=== PATIENT | male | born 1995 | race African-American/Black ===

== ENCOUNTER 2024-11-05 14:47 | Emergency (ER) | payer MEDICAID, SELFPAY ==
[2024-11-05 14:54] VITALS: BP 112/73; PULSE 60; RESP 18; TEMP 37.4; O2SAT 98; BMI 22.6
--- NOTE | 2024-11-05 15:00 | ED_ITS ---
HPI - General Adult General Chief complaint: Extremity Pain/Injury, Lower Stated complaint: Fell from semi truck, hit knee Time Seen by Provider: 11/05/24 14:58 History of Present Illness HPI narrative: Patient presents to the emergency department complaining of right knee pain after a fall. Patient states he slipped from his truck and fell to his side and hurt his knee. Patient is able to walk on it although uncomfortable. Patient has increased pain when trying to bend the knee. Incident took place at 1130 today. 28-year-old man presenting to the emergency department with right knee pain after a fall from his semi. It sounds as though was either going up or coming d own the steps of a semi when slipped striking the outer aspect his knee on one of the steps. Is having a great deal of pain flexing his knee. Is able to walk but I understand him to need to be on his toes somewhat. Related Data Home Medications ?Medication ?Instructions ?Recorded ?Confirmed No Known Home Medications 11/05/24 11/05/24 Allergies Allergy/AdvReac Type Severity Reaction Status Date / Time No Known Drug Allergies Allergy Verified 11/05/24 14:59 Review of Systems Status of ROS: Reports: 6 or more systems reviewed and unremarkable except as noted in History and below PFSH PFS Social History Smoking Status: Never smoker Second hand tobacco smoke exposure: No How often do you have a drink containing alcohol: never How often do you have six or more drinks on one occasion: Never AUDIT-C Alcohol total score: 0 Non-prescribed substance use: denies use service: No Exam Narrative: Exam Narrative: Pleasant. NAD. Wearing work boots and long pants. Pulling pants up able to examine the right knee in question. There is tenderness just above in about the fibular head on the right knee. I do not appreciate an effusion and erythema or any abrasion. Flexion of the knee is possible but causes marked increase in pain. There is no laxity to varus or valgus stressors. Leonid's was not really possible due to discomfort. Parviz's appears negative. Const: Vital Signs, click to edit/add: Vital Signs - 24 hr 11/05/24 14:54 Temperature 99.3 F Pulse Rate [Right Pulse Oximeter] 60 Respiratory Rate 18 Blood Pressure [Ri ght Upper Arm] 112/73 Pulse Oximetry 98 Oxygen Delivery Me thod Room Air Documenting provider has reviewed patient's vital signs: yes Course Vital Signs Vital signs: Initial Vital Signs Temperature 99.3 F 11/05/24 14:54 Temperature Source Temporal Artery Scan 11/05/24 14:54 Pulse Rate 60 11/05/24 14:54 Pulse Rhythm Regular 11/05/24 14:54 Pulse Strength 3+ Normal 11/05/24 14:54 Respiratory Rate 18 11/05/24 14:54 Blood Pressure 112/73 11/05/24 14:54 Blood Pressure Mean 86 11/05/24 14:54 Blood Pressure Position Sitting 11/05/24 14:54 Pulse Oximetry 98 11/05/24 14:54 Oxygen Delivery Method Room Air 11/05/24 14:54 Vital Signs Temperature 99.3 F 11/05/24 14:54 Pulse Rate 60 11/05/24 14:54 Respiratory Rate 18 11/05/24 14:54 Blood Pressure 112/73 11/05/24 14:54 Pulse Oximetry 98 11/05/24 14:54 Oxygen Delivery Method Room Air 11/05/24 14:54 Temperature 99.3 F 11/05/24 14:54 Pulse Rate 60 11/05/24 14:54 Respiratory Rate 18 11/05/24 14:54 Blood Pressure 112/73 11/05/24 14:54 Pulse Oximetry 98 11/05/24 14:54 Oxygen Delivery Method Room Air 11/05/24 14:54 Medications Administered Medications: Discontinued Medications Generic Name Dose Route Start Last Admin Trade Name Freq PRN Reason Stop Dose Admin Ibuprofen 600 mg 11/05/24 15:07 11/05/24 15:12 Ibuprofen 200 Mg Tablet PO 11/05/24 15:08 600 mg ONCE ONE Administration Medical Decision Making MDM Narrative Medical decision making narrative: I suspect this is either contusion or possibly a sprain of the fibular head of the knee. I doubt internal knee derangement otherwise. No effusion is noted. I doubt rib fracture but possible there might be a fracture of the fibular head. Does not appear to have sustained injury lower in the leg. With degree of disc omfort it is reasonable to x-ray the knee. Also given ibuprofen and I placed an ice pack held on with Jimmy wrap which did feel better he says. Does not have radicular symptoms to suggest fibular nerve injury. X-ray three-view of the right knee independently reviewed by me looks to be without evidence of injury. Will be placed in a knee immobilizer. See patient discharge plan for further discussion It looks as though what you have done is bruised a very sensitive area of the knee. This can be very painful. I do not have any specific restrictions for you other than to acknowledge that bending your knee, walking over the next week might be rather painful. You can wear this knee immobilizer for comfort over this next week. Can take up to 800 mg of ibuprofen or up to 1000 mg of acetaminophen per dose. Alternative to the ibuprofen might be up to 500 mg naproxen 2 times daily. I would ice your knee using this Jimmy wrap and an ice bag 2 to 3 times a day over the next few days. I like the Rocha brand ice bags. You can buy them at [facility]'s last I saw. Fill with ice and water. Follow-up for re-evaluation if you are not improved in 10 days. Discharge Plan Discharge Clinical Impression: Acute knee pain, Contusion Patient Disposition: Home, Self-Care Condition: Stable Additional Instructions: It looks as though what you have done is bruised a very sensitive area of the knee. This can be very painful. I do not have any specific restrictions for yo u other than to acknowledge that bending your knee, walking over the next week might be rather painful. You can wear this knee immobilizer for comfort over this next week. Can take up to 800 mg of ibuprofen or up to 1000 mg of acetaminophen per dose. Alternative to the ibuprofen might be up to 500 mg naproxen 2 times daily. I would ice your knee using this Jimmy wrap and an ice bag 2 to 3 times a day over the next few days. I like the Rocha brand ice bags. You can buy them at [facility]'s last I saw. Fill with ice and water. Follow-up for re-evaluation if you are not improved in 10 days. Prescriptions: No Action No Known Home Medications Follow Up/Referrals: Doug Pedro, MS, LAT, ATC [Primary Care Provider] - Stand Alone Forms: [facility] Info Instructions
--- NOTE | 2024-11-05 15:07 | CRLHL7_ITS ---
For Patients: As a result of the Cures Act, medical imaging exams and procedure reports are released immediately into your electronic medical record. You may view this report before your referring provider. If you have questions, please contact your health care provider. Indication: Trauma. Technique: Right knee, 3 views. Comparison: None. Findings/Impression: Bones: Alignment is normal. No displaced fractures or bone lesions. Joint spaces: Unremarkable. Soft tissues: Unremarkable. Dictated by Aleks Thompson MD @ 11/05/2024 3:36:53 PM (Electronically Signed)
[2024-11-05] MEDS: IBUPROFEN 200 MG TABLET 600 MG PO (15:12)
== END 2024-11-05 16:18 | disposition home or self-care (01) ==
PROVIDERS: Emergency Provider Family Medicine
DX: S80.01XA Contusion of right knee, initial encounter (principal); W17.89XA Other fall from one level to another, initial encounter
CPT/HCPCS: 73562; 99283; 99284; A9270